=== PATIENT | female | born 1990 | race African-American/Black ===

== ENCOUNTER 2018-11-15 09:30 | Day surgery (SDC) | payer OTHER ==
[~2018-11-15 09:30] MED LIST: CEFAZOLIN 2 GM/50 ML (PMX) 50 ML IVPB; SOD CHLORIDE 0.9% 1,000 ML IV
[2018-11-15] MEDS ORDERED: SUCCINYLCHOLINE CHLORIDE 100 MG/5 ML SYG IV (10:52)
[2018-11-15] MEDS ORDERED: PROPOFOL 20 ML (10:52)
[2018-11-15] MEDS ORDERED: LIDOCAINE 2% (SDV) 5 ML INJ (10:52)
[2018-11-15] MEDS ORDERED: ONDANSETRON 4 MG INJ (10:52)
[2018-11-15] MEDS ORDERED: FENTAnyl 50 MCG/ML VIAL (10:52)
[2018-11-15] MEDS ORDERED: MIDAZOLAM 1 MG/ML 2 ML INJ (10:52)
[2018-11-15] MEDS ORDERED: ROCURONIUM 50 MG INJ ×2 (10:52→11:45)
[2018-11-15] MEDS ORDERED: DEXAMETHASONE 4 MG/ML 5 ML INJ (10:52)
[2018-11-15] MEDS ORDERED: SUGAMMADEX SODIUM 200 MG/2 ML VIAL IV (11:45)
[2018-11-15] MEDS: BUPIVACAINE 0.5%/EPI (SDV) 30 ML INJ (11:56)
[2018-11-15] MEDS ORDERED: MEPERIDINE 25 MG INJ IV (12:30)
[2018-11-15] MEDS ORDERED: DIPHENHYDRAMINE 50 MG INJ IV (12:30)
[2018-11-15] MEDS ORDERED: HYDROmorphONE 1 MG/5 ML IV SYRINGE IV ×3 (12:30)
[2018-11-15] MEDS ORDERED: ONDANSETRON 4 MG INJ IV (12:30)
== END 2018-11-15 13:45 | disposition home or self-care (01) ==
LOC: SDS 09:30
DX: L72.0 Epidermal cyst (principal)
CPT/HCPCS: 11442; 88307